=== PATIENT | female | born 1995 | race Caucasian/White ===

== ENCOUNTER 2025-02-25 07:40 | Outpatient (AMB) | payer OTHER, SELFPAY ==
--- NOTE | 2025-02-25 08:13 | MHC.PC.OV ---
Vital Signs 02/25/25 08:15 Height 5 ft 4.57 in Weight 189 lb 4 oz BMI 31.9 BP 130/78 Blood Pressure Location Lt brachial Position Sitting Pulse 100 Pulse Source Pulse Oximeter Temp 97.1 F Temp Source Temporal Artery Scan Pulse Oximetry (%) 99 Oxygen Delivery Method Room Air Intake Visit Reasons: SHEETROCK APPLICATOR-PE Intake Note: Patient is a new patient here to establish care for high blood pressure reading, Moles in head, Depression, Anxiety, ADHD?, Mestasis. [place] [facility] [place] ([place], [place] Medical records have been requested and have received. Requesting referral to see Dermatology due to mole Casing Running Machine Tender Required: No Cover Assembler: Not Required per policy Accompanied by: Self / Same As Patient Allergies No Known Allergies Allergy (Verified 02/25/25 08:28) Medication List - Last Reconciled 02/25/25 by Valerie Mancilla PA-C No Known Home Meds Tobacco use date assessed: 02/25/25 Dental Screening Dental Screen Date: 02/25/25 Did you have a dental visit in the last 12 months?: No Did you have a dental problem in the last 6 months where you did not have access to dental care?: No Was dental information given to patient?: No HPI SHEETROCK APPLICATOR-PE HPI Details 30-year-old female coming to the office for the 1st time. Presenting for evaluation of multiple health concerns including dermatological issues, psychological evaluation, and management of hemorrhoids. High blood pressure was noted during , but no formal diagnosis was made. The patient was monitored during this period. The patient has a history of depression and anxiety, previously managed with medications such as Prozac. She reports increased emotional distress recently, possibly exacerbated by the demands of caring for a young child. The patient suspects she has ADHD and is interested in obtaining a formal diagnosis and exploring treatment options that are compatible with . Dermatological concerns include moles that have changed in size and appearance, prompting a request for a dermatology referral. The patient reports hemorrhoids, characterized by pain and occasional bleeding, likely exacerbated by changes. Constipation is a concern, with the patient using MiraLax for management. She reports regular bowel movements but acknowledges straining prior to starting MiraLax. [facility] Medical History Gestational hypertension Surgical History History of delivery Family History Other Mental health disorder Social History Housing: Condominium Alcohol intake: never Patient Tobacco Use Status: Former Tobacco user (2020) e-Cigarette/Vaping Use: Never Used Second Hand Smoke Exposure: Yes service: No Current occupational status: employed Current occupation: Home health aide Cognitive needs: No Hearing needs: No Vision needs: No Female Reproductive History Menstrual control method: none Total pregnancies: 2 Full term: 1 History of abnormal pap smear: No Questionnaire PHQ-9 Over the last 2 weeks, how often have you been bothered by any of the following problems? 1. Little interest or pleasure in doing things: not at all 2. Feeling down, depressed, or hopeless: not at all 3. Trouble falling or staying asleep, or sleeping too much: several days 4. Feeling tired or having little energy: several days 5. Poor appetite or overeating: several days 6. Feeling bad about yourself - or that you are a failure or have let yourself or your family down: several days 7. Trouble concentrating on things, such as reading the newspaper or watching television: not at all 8. Moving or speaking so slowly that other people could have noticed. Or the opposite - being so fidgety or restless that you have been moving around a lot more than usual: not at all 9. Thoughts that you would be better off or of hurting yourself in some way: not at all Total score: 4 Depression Screening Interpretation: Positive (counseling ref) Depression Screening Follow-up: Existing condition and Other Depression Screening Done: Yes 39823 - PHQ-9 Billing: Yes Source: Developed by Drs. Don Craig, Jyothi Mauricio, Ike Chicas and colleagues, with an educational mello from [employer]. Thrive Questionnaire Date Thrive assessed: 02/18/25 I am a: Patient What is your living situation today?: I have a steady place to live Within the past 12 months, did the food you bought not last and you didn't have the money to get more?: I choose not to answer this question Within the past 12 months, did you worry whether your food would run out before you got money to buy more?: I choose not to answer this question Do you have trouble paying for medicines?: No Do you have trouble getting transportation to medical appointments?: No Do you have trouble paying your heating and electricity bill?: I choose not to answer this question Do you have trouble taking care of your child, family member or friend?: No Do you have trouble with day-to-day activities such as bathing, preparing meals, shopping, managing finances, etc.?: No Are you currently unemployed and looking for a job?: I choose not to answer this question Are you interested in more education?: Yes Please select the resources that you would like help with: Education and None Currently or been in a relationship where the following occur: I choose not to answer THRIVE Score: 0 AUDIT C Alcohol Use Questionnaire (AUDIT-C) 1. How often do you have a drink containing alcohol?: Never 2. How many drinks containing alcohol do you have on a typical day when you are drinking?: 1 or 2 3. How often do you have six or more drinks on one occasion?: Never Total Score: 0 Score Reviewed/Action Taken: Yes VIDAL-7 AMB Questionnaire VIDAL-7 Date VIDAL - 7 assessed: 02/25/25 Feeling nervous, anxious, or on edge: 1 = Several days Not being able to stop or control worryin = Not at all Worrying too much about different things: 1 = Several days Trouble relaxin = Several days Being so restless that it is hard to sit still: 0 = Not at all Becoming easily annoyed or irritable: 1 = Several days Feeling afraid as if something awful might happen: 1 = Several days Total VIDAL-7 score (0-4 normal; 5-9 mild; 10-14 moderate; 15-21 severe): 5 Source: Developed by Drs. Don Craig, Jyothi Mauricio, Ike Chicas and colleagues, with an educational mello from [employer] VIDAL-7 Assessment Billing VIDAL-7 Assessment Tool: VIDAL-7 Assessment 53045 Review of Systems Const Denies body aches, Denies chills, Denies fever(s) and Denies headache(s) Eyes Reports no additional complaints ENT Denies dizziness and Denies headache(s) Card Denies chest pain, Denies syncope, Denies edema, Denies irregular heart rhythm, Reports lightheadedness (rarely) and Denies dyspnea Resp Denies dyspnea GI Denies abdominal pain, Reports constipation, Denies diarrhea, Denies nausea and Denies vomiting Reports no additional complaints Musc Reports no additional complaints and Denies abnormal gait Skin/Breast Reports system reviewed and no additional complaints, except as documented Neuro Denies abnormal gait, Denies dizziness, Denies syncope and Denies headache(s) Psych Reports no additional complaints Physical exam (Primary Care) Vital Signs: Last Vital Signs Temp 97.1 F 02/25/25 08:15 Pulse 100 02/25/25 08:15 BP 130/78 02/25/25 08:15 Pulse Ox 99 02/25/25 08:15 Oxygen Delivery Method Room Air 02/25/25 08:15 BMI result Body Mass Index 31.9 BMI Assessment/Plan discussion: High BMI High, discussed plan: lifestyle, weight reduction and physical activity Tobacco/Smoking Status: Tobacco use Status Tobacco use date assessed 02/25/25 02/25/25 08:20 Patient Tobacco Use Status Former Tobacco user (2020) 02/25/25 08:26 e-Cigarette/Vaping Use Never Used 02/25/25 08:23 PHQ-9: PHQ-9 Score PHQ-9: Total score 4 02/25/25 08:32 Depression Screening Interpretation: Positive (counseling ref) Depression Screening Follow-up: Existing condition and Other Thrive Assessment: Date of Thrive Assessment Date Thrive assessed 02/18/25 02/25/25 08:20 Currently or been in a relationship where the following occur: I choose not to answer Const General: cooperative, healthy appearing, comfortable and no acute distress Orientation/consciousness: patient oriented x3 HENMT Head: Yes normocephalic Ears: hearing grossly normal bilaterally General nose exam: Normal external nose present Eyes General: appearance normal, both eyes and all related structures Conjunctivae: conjunctivae normal Neck Neck: Yes full ROM and Yes no lymphadenopathy Resp Effort & Inspection: normal respiratory effort Auscultation: clear to auscultation bilaterally, no crackles, no rales, no rhonchi and no wheezes Cardio Rate: regular rate Rhythm: regular rhythm Skin General skin exam: no rashes or lesions noted Neuro General: patient oriented x3 Gait exam (Neuro): Normal gait present Extrem General: Yes normal to inspection, Yes full ROM and No edema Psych Affect: normal affect Attitude: cooperative Insight: Good insight present (Psych) Judgement: Good judgement present (Psych) Coding Level of Care Code New Pt Level 4 (88629) Diagnoses ADHD F90.9 Anxiety F41.9 Depression F32.A Obesity (BMI 30.0-34.9) E66.811 Atypical nevi D22.9 Hemorrhoid K64.9 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 Referral was placed to outpatient psych clinic today. (2) Anxiety: Code(s): F41.9 - Anxiety disorder, unspecified Category: Medical Plan: Patient has a history of anxiety and depression previously medication on Prozac. She is concerned about the safety as breast-feeding and would also like a counselor. Referral was placed for counseling and for outpatient psych clinic today. (3) Depression: Code(s): F32.A - Depression, unspecified Category: Medical Plan: See above (4) Obesity (BMI 30.0-34.9): Code(s): E66.811 - Obesity, class 1 Category: Medical Plan: Healthy diet and regular exercise is encouraged. Patient reports an intentional 80 lb weight loss over the two years. (5) Atypical nevi: Code(s): D22.9 - Melanocytic nevi, unspecified Category: Medical Plan: Referral was placed to Dermatology for further evaluation and treatment (6) Hemorrhoid: Code(s): K64.9 - Unspecified hemorrhoids Category: Medical Plan: Discussed the importance avoiding strenuous activity, straining with defecation and prolonged sitting while on the toilet. Plan to use MiraLax daily for constipation and incorporating fiber in the diet. She may also use preparation H for pain. I have also offered General surgery referral if hemorrhoid worsens or prolapses. (7) Pineal gland cyst: Comment: 2013 brain MRI in [facility] was 1 cm pineal cyst stable on repeat MRI in 2013. For her last PCP in the absence of new or worsening symptoms imaging is not necessary Code(s): E34.8 - Other specified endocrine disorders Category: Medical Plan: Currently asymptomatic at this time, continue to monitor Plan The patient will be referred to a canoe maker for evaluation of moles that have changed in size and appearance. A referral to a psychologist will be made for assessment and potential treatment of ADHD, anxiety, and depression, with consideration of -friendly options. The patient will continue using MiraLax for constipation management and will be advised on dietary modifications to prevent hemorrhoids. Blood work will be ordered to assess for anemia and other potential issues contributing to dizziness. Follow-up appointments will be scheduled to monitor progress and adjust treatment plans as necessary. This note was constructed using voice recognition software. While every effort has been made to ensure accuracy and brick unloader tender, still areas may have been included sometimes these areas may affect the content or meeting of the given symptoms. Total time spent caring for the patient today was 30 minutes. This includes time spent before the visit reviewing the chart, time spent during the visit, and time spent after the visit and documentation. Patient was informed and verbally consented to the use of an ambient scribe for clinic note documentation during this visit. Orders: Orders TSH reflex Free T4 Today Z13.29 - Encounter for screening for other suspected endocrine disorder Vitamin B12 and Folate Today Z13.21 - Encounter for screening for nutritional disorder IRON PROFILE Today Z13.0 - Encounter for screening for diseases of the blood and blood-forming organs and certain disorders involving the immune mechanism Comprehensive Met. Panel Today Z13.1 - Encounter for screening for diabetes mellitus Complete Blood Count Auto Diff Today Z13.0 - Encounter for screening for diseases of the blood and blood-forming organs and certain disorders involving the immune mechanism, Z13.220 - Encounter for screening for lipoid disorders, Z13.29 - Encounter for screening for other suspected endocrine disorder Lipid Panel Today Z13.220 - Encounter for screening for lipoid disorders Free T4 (Free Thyroxine) Today Z13.29 - Encounter for screening for other suspected endocrine disorder Vitamin D 25-OH Total Today Z00.00 - Encounter for general adult medical examination without abnormal findings Referrals Counseling Referral F32.A - Depression, unspecified, F41.9 - Anxiety disorder, unspecified CHANGE MANAGEMENT ADMINISTRATOR Referral Z12.4 - Encounter for screening for malignant neoplasm of cervix, Z30.09 - Encounter for other general counseling and advice on contraception Dermatology Referral D22.9 - Melanocytic nevi, unspecified Psychiatry Outpatient Consultation Service F32.A - Depression, unspecified, F41.9 - Anxiety disorder, unspecified, F90.9 - Attention-deficit hyperactivity disorder, unspecified type
[2025-02-25 08:15] VITALS: BP 130/78; PULSE 100; TEMP 36.2; O2SAT 99; BMI 31.9
== END 2025-02-25 08:47 | disposition home or self-care (01) ==
LOC: HO.HMCH 07:41
DX: F90.9 Attention-deficit hyperactivity disorder, unspecified type (principal); F41.9 Anxiety disorder, unspecified; E66.811 Obesity, class 1; Z68.31 Body mass index [BMI] 31.0-31.9, adult; F32.A Depression, unspecified; D22.9 Melanocytic nevi, unspecified; K64.9 Unspecified hemorrhoids; E34.8 Other specified endocrine disorders

== ENCOUNTER → 2025-02-25 07:40 | Outpatient (BNVA) | payer OTHER, SELFPAY | DX: E66.811 Obesity, class 1 (principal); K64.9 Unspecified hemorrhoids; F32.A Depression, unspecified; F41.9 Anxiety disorder, unspecified; F90.9 Attention-deficit hyperactivity disorder, unspecified type; K59.00 Constipation, unspecified; D22.9 Melanocytic nevi, unspecified; E34.8 Other specified endocrine disorders; Z68.31 Body mass index [BMI] 31.0-31.9, adult; Z79.899 Other long term (current) drug therapy | CPT/HCPCS: 96127; 99202 ==

== ENCOUNTER 2025-05-14 09:55 | Outpatient (REF) | payer OTHER, SELFPAY ==
[2025-05-14 11:07] LABS: MANUAL DIFF FLAG NO
[2025-05-14 11:25] LABS: Hematocrit 39.5 % (37.0-47.0); Hemoglobin 12.9 g/dl (12.0-16.0); Imm Gran Abs Auto 0.01 X10*3/uL (0.00-0.03); Imm Gran Pct Auto 0.2 % (0.0-0.4); Lymphocytes Absolute Auto 2.2 X10*3/uL (1.2-4.9); Mean Corpuscular HGB Conc 32.7 g/dl (31.0-35.0); Mean Corpuscular Hemoglobin 27.6 pg (27.0-33.0); Mean Corpuscular Volume 84.6 fL (80.0-98.0); NRBC Abs Auto 0.000 X10*3/uL (0.0-0.012); NRBC Pct Auto 0.0 /100WBC (0.0-0.2); Platelet Count 168 X10*3/uL (160-400); Red Blood Count 4.67 X10*6/uL (4.20-5.50); White Blood Count 6.0 X10*3/uL (4.8-10.8)
[2025-05-14 14:45] LABS: Alanine Aminotransferase 27 U/L (0-31); Albumin Level 4.3 g/dL (3.5-5.0); Alkaline Phosphatase 60 U/L (39-117); Anion Gap 9 (12-20); Aspartate Amino Transferase 18 U/L (5-31); Blood Urea Nitrogen 13 mg/dL (9-16); Calcium 8.9 mg/dL (8.4-10.2); Carbon Dioxide 27 mmol/L (22-29); Chloride 111 mmol/L (96-108); Cholesterol 142 mg/dL (<200); Estimated Glomerular Filt Rate > 60; Free T4 (Free Thyroxine) 1.02 ng/dL (0.71-1.85); HDL Cholesterol 49 mg/dL (>40); Iron 26 mcg/dL (30-160); Percent Iron Saturation 12 % (15-50); Potassium 4.1 mmol/L (3.3-5.1); Sodium 143 mmol/L (135-145); Total Iron Binding Capacity 224 mcg/dL (228-428); Total Protein 6.6 g/dL (6.5-8.0); Triglycerides 51 mg/dL (<150); Unsaturated Iron Binding 198 ug/dL
[2025-05-14 14:58] LABS: Folate 7.0 ng/mL (> or = 4.0); Vitamin B12 474 pg/mL (200-900)
== END 2025-05-14 09:56 | disposition home or self-care (01) ==
LOC: HO.WFDLDS 09:55
DX: Z00.00 Encounter for general adult medical examination without abnormal findings (principal); Z13.0 Encounter for screening for diseases of the blood and blood-forming organs and certain disorders involving the immune mechanism; Z13.1 Encounter for screening for diabetes mellitus; Z13.29 Encounter for screening for other suspected endocrine disorder; Z13.21 Encounter for screening for nutritional disorder; Z13.6 Encounter for screening for cardiovascular disorders
CPT/HCPCS: 36415; 80053; 80061; 82306; 82607; 82746; 83540; 84439; 84443; 85025

== ENCOUNTER 2025-05-29 08:13 | Outpatient (AMB) | payer OTHER, SELFPAY ==
[2025-05-29 08:16] VITALS: BP 122/66; PULSE 109; RESP 18; TEMP 36.2; O2SAT 99; BMI 32.6
--- NOTE | 2025-05-29 08:16 | MHC.PC.OV ---
Vital Signs 05/29/25 08:16 Height 5 ft 4.57 in Weight 193 lb 4 oz BMI 32.6 BP 122/66 Blood Pressure Location Lt brachial Position Sitting Respiration 18 Pulse 109 H Pulse Source Pulse Oximeter Temp 97.1 F Temp Source Temporal Artery Scan Pulse Oximetry (%) 99 Oxygen Delivery Method Room Air Intake Visit Reasons: Annual Exam Supervisor Typesetting Required: No Accompanied by: Self / Same As Patient Allergies No Known Allergies Allergy (Verified 05/29/25 08:18) Medication List - Last Reconciled 05/29/25 by Valerie Mancilla PA-C ascorbate calcium (vitamin C) 500 mg PO DAILY ferrous sulfate (FeroSul) 325 mg PO DAILY Tobacco use date assessed: 05/29/25 Dental Screening Dental Screen Date: 05/29/25 Did you have a dental visit in the last 12 months?: No Did you have a dental problem in the last 6 months where you did not have access to dental care?: No Was dental information given to patient?: No HPI Annual Exam HPI Details 30-year-old female with past medical history of ADHD, anxiety and depression last seen 01/2025 coming in for annual exam. Presenting for an annual wellness visit and review of recent laboratory results. Recent blood work revealed a slightly low iron level, though it has not resulted in anemia, and her red and white blood cell counts were normal. The patient has already started taking an iron supplement as a result. She reports her menstrual periods have been very light recently. The patient has a history of anxiety and depression and reports feeling well without medication. She has been attempting to establish care with a counselor and has been waiting for an outpatient psychiatry clinic to contact her for three months. She reports occasional abdominal pain about once a week without specific food triggers, nausea, or vomiting. She also notes occasional constipation and a history of hemorrhoids, both of which have improved. Pap smear: Appointment coming up with gynecology in September Vaccinations: TDAP UTD, flu shot given today PFSH Medical History Gestational hypertension Surgical History History of delivery Family History Other Mental health disorder Social History Housing: Condominium Alcohol intake: never Patient Tobacco Use Status: Former Tobacco user (2020) e-Cigarette/Vaping Use: Never Used Second Hand Smoke Exposure: Yes service: No Current occupational status: employed Current occupation: Home health aide Cognitive needs: No Hearing needs: No Vision needs: No Questionnaire PHQ-9 Over the last 2 weeks, how often have you been bothered by any of the following problems? 1. Little interest or pleasure in doing things: not at all 2. Feeling down, depressed, or hopeless: not at all 3. Trouble falling or staying asleep, or sleeping too much: several days 4. Feeling tired or having little energy: several days 5. Poor appetite or overeating: several days 6. Feeling bad about yourself - or that you are a failure or have let yourself or your family down: several days 7. Trouble concentrating on things, such as reading the newspaper or watching television: not at all 8. Moving or speaking so slowly that other people could have noticed. Or the opposite - being so fidgety or restless that you have been moving around a lot more than usual: not at all 9. Thoughts that you would be better off or of hurting yourself in some way: not at all Total score: 4 Depression Screening Interpretation: Positive (counseling ref) Depression Screening Follow-up: Existing condition and Other Depression Screening Done: Yes Source: Developed by Drs. Don Craig, Jyothi Mauricio, Ike Chicas and colleagues, with an educational mello from [employer]. Thrive Questionnaire Date Thrive assessed: 02/18/25 I am a: Patient What is your living situation today?: I have a steady place to live Within the past 12 months, did the food you bought not last and you didn't have the money to get more?: I choose not to answer this question Within the past 12 months, did you worry whether your food would run out before you got money to buy more?: I choose not to answer this question Do you have trouble paying for medicines?: No Do you have trouble getting transportation to medical appointments?: No Do you have trouble paying your heating and electricity bill?: I choose not to answer this question Do you have trouble taking care of your child, family member or friend?: No Do you have trouble with day-to-day activities such as bathing, preparing meals, shopping, managing finances, etc.?: No Are you currently unemployed and looking for a job?: I choose not to answer this question Are you interested in more education?: Yes Currently or been in a relationship where the following occur: I choose not to answer THRIVE Score: 0 VIDAL-7 AMB Questionnaire VIDAL-7 Date VIDAL - 7 assessed: 02/25/25 Source: Developed by Drs. Don Craig, Jyothi Mauricio, Ike Chicas and colleagues, with an educational mello from [employer]. Review of Systems Const Denies body aches, Denies chills, Denies fever(s), Denies headache(s) and Denies poor appetite Eyes Reports no additional complaints ENT Denies dysphagia, Denies dizziness, Denies headache(s) and Denies odynophagia Card Denies chest pain, Denies syncope, Denies edema, Denies irregular heart rhythm, Denies lightheadedness and Denies dyspnea Resp Denies cough and Denies dyspnea GI Denies abdominal pain, Denies constipation, Denies dysphagia, Denies diarrhea, Denies nausea, Denies odynophagia and Denies vomiting Reports no additional complaints Musc Reports no additional complaints and Denies abnormal gait Skin/Breast Reports system reviewed and no additional complaints, except as documented Neuro Denies abnormal gait, Denies dizziness, Denies syncope and Denies headache(s) Psych Reports no additional complaints Physical exam (Primary Care) Vital Signs: Last Vital Signs Temp 97.1 F 05/29/25 08:16 Pulse 109 H 05/29/25 08:16 Resp 18 05/29/25 08:16 BP 122/66 05/29/25 08:16 Pulse Ox 99 05/29/25 08:16 Oxygen Delivery Method Room Air 05/29/25 08:16 BMI result Body Mass Index 32.6 Tobacco/Smoking Status: Tobacco use Status Tobacco use date assessed 05/29/25 05/29/25 08:21 Patient Tobacco Use Status Former Tobacco user (2020) 05/29/25 08:17 e-Cigarette/Vaping Use Never Used 05/29/25 08:17 PHQ-9: PHQ-9 Score PHQ-9: Total score 4 05/29/25 08:57 Depression Screening Interpretation: Positive (counseling ref) Depression Screening Follow-up: Existing condition and Other Thrive Assessment: Date of Thrive Assessment Date Thrive assessed 02/18/25 05/29/25 08:17 Currently or been in a relationship where the following occur: I choose not to answer Const General: cooperative, healthy appearing, comfortable and no acute distress Orientation/consciousness: patient oriented x3 HENMT Head: Yes normocephalic Ears: hearing grossly normal bilaterally General nose exam: Normal external nose present Face and sinus: Yes normal facial exam and Yes sinuses nontender Mouth: Normal oral and palatal mucosa present and tongue normal Throat: Yes posterior oropharynx normal Eyes General: appearance normal, both eyes and all related structures Conjunctivae: conjunctivae normal Pupils: Equal, round and reactive pupils present EOM: EOMs intact bilaterally and No Nystagmus present Neck Neck: Yes full ROM and Yes no lymphadenopathy Chest Chest palpation & inspection: normal inspection of the chest Resp Effort & Inspection: normal respiratory effort Auscultation: clear to auscultation bilaterally, no crackles, no rales, no rhonchi and no wheezes Cardio Rate: regular rate Rhythm: regular rhythm Peripheral pulses: radial pulses present and dorsalis pedis present GI Inspection: Yes normal to inspection and No Abdominal wall edema Palpation (GI): Soft to palpation, not firm and nontender Auscultation: normal bowel sounds Rectal Exam - Female: deferred General: Yes no CVA tenderness Back/Spine/Pelvis Back: no CVA tenderness Skin General skin exam: no rashes or lesions noted Neuro General: patient oriented x3 Cranial nerves: Yes Equal, round and reactive pupils present, Yes Midline tongue present, Yes Ability to bilaterally elevate shoulders present and No Nystagmus present Gait exam (Neuro): Normal gait present Extrem General: Yes normal to inspection, Yes full ROM and No edema Psych Speech and movement: Normal speech and movement present Affect: normal affect Attitude: cooperative Insight: Good insight present (Psych) Judgement: Good judgement present (Psych) Office Procedures Flu Questionnaire Does the patient have a severe egg allergy?: No Does the patient have severe life threatening allergies?: No Does the patient have a fever or illness today?: No Has the patient ever had Guillain-[place] Syndrome?: No Has the patient ever had any past reaction to a flu shot?: No Immunizations Fluarix [id number] (PF) 45 mcg (15 mcg x 3)/0.5 mL IM syringe Performing Provider: Valerie Mancilla PA-C [facility] Administered by: ZOILA Leiva on 05/29/25 09:01 Dose Route Admin Location Dispensed Lot Number Expiration Date [facility] [employer] 0.5 mL IM Right Deltoid 0.5 mL [id number] 01/26/26 73575-909-22 [employer] VIS Given Date VIS Provided VIS Publication Date 05/29/25 Single Vaccine 24 Eligibility Eligibility Date Funding Source Not [facility] Eligible 05/29/25 Private Coding Level of Care Code Est Pt Prev Care [id number]) Diagnoses Annual physical exam Z00.00 Depression F32.A Anxiety F41.9 ADHD F90.9 Obesity (BMI 30.0-34.9) E66.811 Low iron E61.1 Assessment & Plan Assessment & Plan (1) Annual physical exam: Code(s): Z00.00 - Encounter for general adult medical examination without abnormal findings Category: Medical Plan: Patient is up to date on all recommended routine screenings and vaccinations for her age. Flu shot was given in the office today. Blood work is up to date and has been reviewed with the patient today. Healthy diet and regular exercise is encouraged. Plan to follow up yeary or sooner as needed. (2) Depression: Code(s): F32.A - Depression, unspecified Category: Medical Plan: She has not yet heard from the counseling service and is working on establishing with them. Declining medication today. (3) Anxiety: Code(s): F41.9 - Anxiety disorder, unspecified Category: Medical Plan: See above. (4) ADHD: Code(s): F90.9 - Attention-deficit hyperactivity disorder, unspecified type Category: Medical Plan: Patient was advised to reach out to outpatient psych clinic for appointment. I will also reach out. (5) Obesity (BMI 30.0-34.9): Code(s): E66.811 - Obesity, class 1 Category: Medical Plan: Healthy diet and regular exercise is encouraged. Patient reports an intentional 80 lb weight loss over the two years. (6) Low iron: Code(s): E61.1 - Iron deficiency Category: Medical Plan: Recent labs showed a low iron level, though not causing anemia. The patient has already begun taking an iron supplement. Advised to take iron with vitamin C to improve absorption and to increase dietary iron intake, especially if she develops constipation from the supplement. Plan This note was constructed using voice recognition software. While every effort has been made to ensure accuracy and detailer furniture, still areas may have been included sometimes these areas may affect the content or meeting of the given symptoms. Total time spent caring for the patient today was 30 minutes. This includes time spent before the visit reviewing the chart, time spent during the visit, and time spent after the visit and documentation. Patient was informed and verbally consented to the use of an ambient scribe for clinic note documentation during this visit. Orders: Orders Influenza [id number] Immunization Today Z23 - Encounter for immunization
== END 2025-05-29 09:19 | disposition home or self-care (01) ==
LOC: HO.HMCH 08:13
DX: Z00.00 Encounter for general adult medical examination without abnormal findings (principal); F32.A Depression, unspecified; E66.811 Obesity, class 1; Z68.32 Body mass index [BMI] 32.0-32.9, adult; F41.9 Anxiety disorder, unspecified; F90.9 Attention-deficit hyperactivity disorder, unspecified type; E61.1 Iron deficiency; Z23 Encounter for immunization

== ENCOUNTER → 2025-05-29 08:13 | Outpatient (BNVA) | payer OTHER, SELFPAY | DX: Z00.00 Encounter for general adult medical examination without abnormal findings (principal); F32.A Depression, unspecified; F41.9 Anxiety disorder, unspecified; F90.9 Attention-deficit hyperactivity disorder, unspecified type; E66.811 Obesity, class 1; E61.1 Iron deficiency; Z23 Encounter for immunization | CPT/HCPCS: 90471; 90656; 96127 ==